=== PATIENT | male | born 1970 ===

== ENCOUNTER 2016-09-17 11:00 | Emergency (ER) | payer MEDICAID, OTHER ==
[2016-09-17 11:14] VITALS: BP 132/76; PULSE 75; RESP 16; TEMP 98; O2SAT 98
--- NOTE | 2016-09-17 11:19 | C.PDOC ---
History Of Present Illness 46 y/o male c/o pain and swelling to right foot and ankle 10 days after injuring extremity in a fall. pt sts swelling decreased, but still present. denies any other injuries. Time Seen by Provider: 09/17/16 11:11 Chief Complaint (Nursing): Lower Extremity Problem/Injury History Per: Patient History/Exam Limitations: no limitations Onset/Duration Of Symptoms: Days (10) Current Symptoms Are (Timing): Still Present Severity: Moderate - Ankle/Foot Description Of Injury: Fell, Twisted Alleviating Factor(s): OTC Pain Medication (tylenol) Past Medical History Reviewed: Historical Data, Nursing Documentation, Vital Signs Vital Signs: Last Vital Signs Temp 98.0 F 09/17/16 11:05 Pulse 75 09/17/16 11:05 Resp 16 09/17/16 11:05 BP 132/76 09/17/16 11:05 Pulse Ox 98 09/17/16 12:20 - Medical History PMH: No Chronic Diseases Surgical History: No Surg Hx Family History: States: Unknown Family Hx - Social History Hx Alcohol Use: Yes Hx Substance Use: No - Immunization History Hx Tetanus Toxoid Vaccination: Yes Hx Influenza Vaccination: No Hx Pneumococcal Vaccination: No Review Of Systems Constitutional: Negative for: Fever, Chills Musculoskeletal: Positive for: Foot Pain (right), Other (right) Neurological: Negative for: Weakness, Numbness Physical Exam - Physical Exam Appears: Non-toxic, No Acute Distress Skin: Warm, Dry Extremity: Other (from of righthip, knee and ankle. +swelling to dorsum of foot lateral aspect and at lateral malleolus, tender proximal 4th and 5th metatarsals and lateral malleolus. ) Extremity: Right: Bony Point Tenderness (prox metatarsals and lateral malleolus) , Painful To Bear Weight, Bilateral: Normal Color And Temperature Pulses: Right Dorsalis Pedis: Normal Neurological/Psych: Oriented x3, Normal Speech, Normal Cognition, Normal Motor, Normal Sensation ED Course And Treatment O2 Sat by Pulse Oximetry: 98 Medical Decision Making Medical Decision Making: pt with swollen ankle and foot s/p fall 10 days ago; xray, analgesics 1215 pm no fx noted on foot or ankle xrays. ger bandage applied. Disposition Counseled Patient/Family Regarding: Studies Performed, Diagnosis, Need For Followup, Rx Given - Disposition Referrals: Arron Wilson MD [Medical Doctor] - Podiatry Clinic [Outside] Disposition: HOME/ ROUTINE Disposition Time: 12:17 Condition: STABLE Additional Instructions: Wear ger bandage on right foot/ankle area during daytime. Follow up with podiatry clinic, bring xray reports with you for further evaluation. Take ibuprofen or Tylenol for pain. Keep foot elevated when possible. Instructions: Ankle Sprain (ED), Foot Sprain (ED) Forms: Gen Discharge Inst Venezuelan Print Language: FRISIAN - Clinical Impression Clinical Impression: Sprain of foot, right, Sprain of ankle, right
--- NOTE | 2016-09-17 11:50 | RAD ---
Right ankle three views History: Pain. Comparison: None available. Findings: Lateral malleolar soft tissue swelling. No evidence of acute displaced fracture or dislocation. Minimal plantar and dorsal calcaneal spurring. Mild productive change and or degenerative changes at the dorsal aspect of the midfoot. Impression: Degenerative changes. Lateral malleolar soft tissue swelling. If pain persists, consider MRI.
--- NOTE | 2016-09-17 11:57 | RAD ---
Right foot three views History: Pain and swelling. Comparison: None available. Findings: No evidence for acute displaced fracture or dislocation. Mild hallux valgus deformity. Minimal plantar and dorsal calcaneal spurring. Productive change and or bony hypertrophy seen at the dorsal aspect of the midfoot most prominently noted at the dorsal aspect of the navicular bone where there is an additional small lucency noted. Clinical correlation to site of pain. Impression: No evidence for acute displaced fracture or dislocation. Mild hallux valgus deformity. Minimal plantar and dorsal calcaneal spurring. Productive change and or bony hypertrophy seen at the dorsal aspect of the midfoot most prominently noted at the dorsal aspect of the navicular bone where there is an additional small lucency noted. Clinical correlation to site of pain. If pain persists, consider MRI.
== END 2016-09-17 12:29 | disposition home or self-care (01) ==
LOC: C.ER 11:00
DX: Y92.9 Unspecified place or not applicable (principal); S93.401A Sprain of unspecified ligament of right ankle, initial encounter; W19.XXXA Unspecified fall, initial encounter; S93.601A Unspecified sprain of right foot, initial encounter